=== PATIENT | male | born 1960 | race Caucasian/White ===

== ENCOUNTER → 2024-01-17 20:00 | Emergency (ER) | payer OTHER, SELFPAY ==
[2024-01-17 20:12] VITALS: BP 198/120
[2024-01-17 20:38] LABS: % Basophils 0.9 % (0-2); % Eosinophils 3.6 % (0-6); % Immature Granulocytes 0.1 % (0-0.5); % Lymphocytes 32.9 % (20.5-51.1); % Monocytes 10.4 % (1.7-9.3); % Neutrophils 52.1 % (42.2-75.2); Absolute Basophils 0.1 10^3/uL (0-0.2); Absolute Eosinophils 0.2 10^3/uL (0-0.7); Absolute Lymphocytes 2.2 10^3/uL (1.2-3.4); Absolute Monocytes 0.7 10^3/uL (0.1-0.6); Absolute Neutrophils 3.5 10^3/uL (1.4-6.5); Hematocrit 41.7 % (39.0-52.0); Hemoglobin 14.4 g/dL (13.0-18.0); Mean Corp Hgb Conc. 34.5 g/dL (33.0-37.0); Mean Corpuscular Hgb 31.5 pg (27.0-31.0); Mean Corpuscular Volume 91.2 fL (80.0-94.0); Mean Platelet Volume 8.5 fL (7.4-10.4); Nucleated Red Blood Cells % 0 % (-); Platelet Count 234 10^3/uL (130-400); Red Blood Cell Count 4.57 10^6/uL (4.70-6.10); Red Cell Dist. Width 11.9 % (11.5-14.5); White Blood Cell Count 6.7 10^3/uL (4.8-10.8)
[2024-01-17 20:53] LABS: ALT (SGPT) 43 U/L (0-50); AST (SGOT) 39 U/L (17-59); Albumin 4.7 g/dl (3.5-5.0); Alkaline Phosphatase 56 U/L (38-126); Blood Urea Nitrogen 11 mg/dl (9-20); Carbon Dioxide 26 mmol/L (22-30); Chloride 99 mmol/L (98-107); Glucose 125 mg/dl (70-99); Lipase 142 U/L (23-300); Potassium 4.1 mmol/L (3.5-5.1); Sodium 138 mmol/L (135-145); Total Bilirubin 0.5 mg/dl (0.2-1.3); Total Protein 7.4 g/dl (6.3-8.2); eGFR > 60.00
[2024-01-17 21:43] VITALS: BMI 32.9
[2024-01-17] MEDS: NSS 1000 IV (22:02)
[2024-01-17] MEDS: TORADOL 30 MG IV (22:03)
[2024-01-17 22:44] VITALS: BP 140/89
[2024-01-17 23:00] VITALS: BP 163/89
[2024-01-17 23:10] LABS: Urine Albumin Trace (Neg - Trace); Urine Bilirubin Negative (Negative); Urine Character Clear (Clear); Urine Color Yellow; Urine Glucose Negative (Negative); Urine Ketone Trace (Negative); Urine Leukocyte Trace (Negative); Urine Nitrite Negative (Negative); Urine Occult Blood 4+ (Negative); Urine Urobilinogen Negative (Neg - 1+)
[2024-01-17 23:17] LABS: Urine Bacteria Few (Negative); Urine Red Blood Cell 70-80 /HPF (0-2); Urine White Cell 0-2 /HPF (0-5)
[2024-01-18] VITALS: BP 153/91
--- NOTE | 2024-01-18 00:16 | ED.GENMED ---
History of Present Illness
General
Chief Complaint: Abdominal Pain
Source: patient and spouse
Exam Limitations: none
Time Seen by Provider: 01/17/24 21:48
Nursing documentation reviewed up to this point in time: agreed with
History of Present Illness
History of Present Illness:
63-year-old male presenting to the [facility] today with concerns of left lower abdominal pain over the past 2 days initially and but worsening today went to urgent care where he had hematuria sent him to the ER for further assessment. Denies
any fevers or vomiting. No history of kidney stones denies chest pain shortness of breath.
Review of Systems
Review of Systems
Allergies reviewed?: Yes
All Other Systems: ROS reviewed and negative except as documented in HPI and ROS
Phy Exam
Physical Exam
Physical Exam:
GENERAL: Alert , in no apparent distress
EYE: pupils equal and reactive
NECK: Supple, no significant adenopathy.
ENT: o/p clr, mmm.
CARDIAC: Regular rate and rhythm .
LUNGS: Clear breath sounds bilaterally, no acute respiratory distress, no wheezes/rales/rhonchi
ABDOMEN: No significant reproducible tenderness to the left lower quad or the left flank. No CVA tenderness, otherwise abdomen soft, without focal tenderness, no r/g, no cvat
NEUROLOGICAL: Alert and oriented, no focal neuro deficits
SKIN: Warm and dry, skin intact.
MUSCULOSKELETAL: No edema, well perfused.
PSYCH: Normal and appropriate interaction.
Course
Orders/Labs/Results
Orders:
Orders
01/17/24 20:22
Complete Blood Count/With Diff Urgent
Comprehensive Metabolic Panel Urgent
Lipase Urgent
01/17/24 21:52
CT Abd/Pel (IV only)-DH only Urgent
Comment:
Reason For Exam: llq pain
0.9% Sodium Chloride 1000 ml [Nss] 1,000 ml IV BOLUS
Ketorolac [Toradol] 30 mg IV NOW STA
01/17/24 23:04
Urinalysis Reflex To Culture Urgent
Date Specimen was Collected: 01/17/24
Time Specimen was Collected: 22:59
Urine Microscopic Reflex Cult Urgent
01/18/24 00:16
Tamsulosin [Flomax] 0.4 mg PO NOW STA
Abnormal Lab Results
01/17/24 01/17/24
20:22 23:04
RBC 4.57 L 10^6/uL
(4.70-6.10)
MCH 31.5 H pg
(27.0-31.0)
Absolute Monos (auto) 0.7 H 10^3/uL
(0.1-0.6)
Monocytes % 10.4 H %
(1.7-9.3)
Glucose 125 H mg/dl
(70-99)
Urine Ketones Trace A
(Negative)
Ur Occult Blood Reflex 4+ A
(Negative)
Leukocyte Esterase Rfl Trace A
(Negative)
Urine RBC 70-80 A /HPF
(0-2)
Urine Bacteria (Reflex) Few A
(Negative)
01/17/24 20:22
01/17/24 20:22
Vital Signs
Initial and Last Documented VS:
Initial Vital Signs
Temp Pulse Resp BP Pulse Ox
97.8 F 94 19 198/120 96
01/17/24 20:12 01/17/24 20:12 01/17/24 20:12 01/17/24 20:12 01/17/24 20:12
Last Documented Vital Signs
Temp Pulse Resp BP Pulse Ox
97.8 F 86 16 153/91 96
01/17/24 20:12 01/17/24 23:04 01/17/24 23:04 01/18/24 00:00 01/18/24 00:30
MDM/Problems Addressed
MDM/Problems Addressed:
63-year-old male presenting to the emergency department today with concerns of left lower abdominal pain described as sharp mitten initially but worsening throughout the day today went to urgent care had blood in his urine was sent to the ER for
further assessment. On arrival blood pressure elevated but improving after receiving Toradol. Was fully resolved after receiving Toradol. Otherwise labs were obtained with no white count normal renal function urinalysis showing red blood cells
but no significant white blood cells no CT scan showing 4 mm calculus at the left UVJ with associated mild left hydro ureteronephrosis. Additionally the patient did have an incidental finding of 1.2 cm hypoattenuating right renal lesion. He was
notified of this and will follow-up as an outpatient for renal ultrasound.
*Critical Care Note
Total Time (30-74mins, 75-104mins- exclusive of procedures): Not Applicable
ED Attending Note
-
Portions of this chart may have been created with voice recognition software.� Occasional wrong word or��sound alike� substitutions may have occurred due to the inherent limitations of voice recognition software.
Discharge Plan
Departure
Patient Disposition: Home (Routine Discharge)
Date of Disposition: 01/18/24
Time of Disposition: 00:16
Patient with high blood pressure during this ER visit?: No
Condition: Good
Covid-19: Not Applicable
Discharge Problem:
Kidney stone on left side
Instructions: Kidney Stones (DC)
Prescriptions:
New
ondansetron 4 mg tablet,disintegrating
4 mg PO Q8H PRN (Reason: nausea and vomiting) Qty: 7 0RF
ketorolac 10 mg tablet
10 mg PO Q8H PRN (Reason: Pain) 3 Days Qty: 14 0RF
tamsulosin [Flomax] 0.4 mg capsule
0.4 mg PO HS Qty: 7 0RF
Referrals:
Casey Reyez MD [Active] - Follow up in 5-7 days
Andrew Sarkar DO [Family Provider] -
Activity Restrictions/Additional Instructions:
You came to the emergency department today with concerns of left-sided discomfort. This is from a kidney stone. Please take the Flomax and the prescribed medications until follow-up with urology. Return to the emergency department for any
worsening, new or concerning symptoms
Interventions
Interventions:
*Risk Screen - Suicide Last Done: 01/17/24 21:43
*General Assessment Last Done: 01/17/24 20:11
*Neglect/Abuse Screening Last Done: 01/17/24 21:43
ED- Fall Risk Assessment Last Done: 01/17/24 21:43
*ED COVID-19 Vaccine History Last Done: 01/17/24 20:11
[facility]-U[facility]-Qffadqpkuq Assessment Last Done: 01/17/24 23:00
Discharge Date and Time
Print Language: SPANISH
[2024-01-18] MEDS: FLOMAX 0.400000000000000022 MG PO (00:38)
== END | disposition home or self-care (01) ==
LOC: EMR 20:00
PROVIDERS: Emergency Medicine; Physician Assistant; EMERGENCY PHYSICIAN Student in an Organized Health Care Education/Training Program; FAMILY PHYSICIAN Family Medicine
DX: N13.2 Hydronephrosis with renal and ureteral calculous obstruction (principal)
CPT/HCPCS: 99285; 96374; 96361; 74177; 80053; 81003; 81015; 83690; 85025; Q9967

== ENCOUNTER 2025-02-01 06:21 | Day surgery (SDC) | payer OTHER, SELFPAY ==
[2025-02-01 09:44] LABS: Glucose - Point of Care 138 mg/dl (70-99)
== END 2025-02-01 11:49 | disposition home or self-care (01) ==
LOC: GI 06:21
PROVIDERS: ATTENDING PHYSICIAN Internal Medicine Gastroenterology
DX: Z12.11 Encounter for screening for malignant neoplasm of colon (principal); K64.8 Other hemorrhoids; K63.89 Other specified diseases of intestine; D12.2 Benign neoplasm of ascending colon; K62.1 Rectal polyp; D12.1 Benign neoplasm of appendix
CPT/HCPCS: 45385; 45380; 82962; 88305

== ENCOUNTER 2025-03-26 12:36 | Emergency (ER) | payer OTHER, SELFPAY ==
[2025-03-26 12:39] VITALS: BP 138/100
[2025-03-26 13:47] VITALS: BMI 31.8
--- NOTE | 2025-03-26 13:51 | ED.GENMED ---
Addendum entered and electronically signed by Rosalba Frost DO 03/26/25 16:25:
Patient was notified by their pharmacy that cefpodoxime was not available. Prescription is changed to cefdinir 300 p.o. twice daily for 1 week. I spoke with the pharmacist at his preferred pharmacy who confirmed that they have this in stock and
would be able to fill this prescription for the patient.
Original Note:
History of Present Illness
General
Chief Complaint: Flank Pain
Time Seen by Provider: 03/26/25 13:40
Nursing documentation reviewed up to this point in time: agreed with
History of Present Illness
History of Present Illness:
64-year-old male presents to the ER for further evaluation of left-sided flank pain which started approximately 1 week ago. He states that the pain was mild last week and seem to resolve spontaneously. He did however develop dysuria and reached
out to his primary care physician. He was initiated on Bactrim which he has been taking but has had persistent left-sided flank pain. He denies radiation of pain to his groin or testicle. He denies any associated nausea or vomiting. He denies
fevers. He reports persistent dysuria, no hematuria. He had a prior history of kidney stone in the past which was symptomatic for approximately 1 week and then resolved spontaneously, he did not require any intervention for treatment of same. He
has been eating and drinking without difficulty. He denies any change in urine output. No vomiting. He took ibuprofen prior to arrival and has been using Tylenol also with some improvement in his pain.
Review of Systems
Review of Systems
Allergies reviewed?: Yes
Phy Exam
Physical Exam
Physical Exam:
Patient is awake, alert, appears in no acute distress, conjunctiva pink, mucous membranes moist, heart regular rate and rhythm without murmurs or ectopy, lungs are clear to auscultation without wheezes rales or rhonchi, abdomen is soft and nontender
on palpation, no CVA tenderness on exam, extremities without edema, 2+ DP pulses present bilateral feet, GCS is 15
Course
Orders/Labs/Results
Orders:
Orders
03/26/25 13:49
CR Abdomen - 1 View Urgent
Comment: Had CT 03/05 showing 4 mm calculus right ureter
Reason For Exam: L flank pain
Renal Only US [US Renal Only W/O Bladder] Urgent
Comment:
Reason For Exam: L flank pain
03/26/25 13:59
Basic Metabolic Panel Urgent
Complete Blood Count/With Diff Urgent
03/26/25 15:00
0.9% Sodium Chloride 1000 ml [Nss] 1,000 ml IV BOLUS
03/26/25 15:27
Urinalysis Urgent
Date Specimen was Collected: 03/26/25
Time Specimen was Collected: 14:45
Urine Culture Urgent
[facility] Source: Urine
Specimen Description:
Obtained by: [facility]
Date Specimen was Collected: 03/26/25
Time Specimen was Collected: 14:45
03/26/25 15:50
CefTRIAXone [Rocephin] 1,000 mg IV NOW STA
Abnormal Lab Results
03/26/25
13:59
RBC 4.57 L 10^6/uL
(4.70-6.10)
MCH 31.1 H pg
(27.0-31.0)
Absolute Monos (auto) 0.7 H 10^3/uL
(0.1-0.6)
Monocytes % 10.8 H %
(1.7-9.3)
BUN 22 H mg/dl
(9-20)
Creatinine 1.7 H mg/dL
(0.7-1.3)
Glucose 114 H mg/dl
(70-99)
Calcium 10.8 H mg/dl
(8.4-10.2)
03/26/25 13:59
03/26/25 13:59
Very reassuring CBC with normal white blood count. Mild elevation in creatinine at 1.7 compared to prior
Vital Signs
Initial and Last Documented VS:
Initial Vital Signs
Temp Pulse Resp BP Pulse Ox
98.4 F 105 16 138/100 98
03/26/25 12:39 03/26/25 12:39 03/26/25 12:39 03/26/25 12:39 03/26/25 12:39
Last Documented Vital Signs
Temp Pulse Resp BP Pulse Ox
98.4 F 69 16 135/84 97
03/26/25 12:39 03/26/25 15:29 03/26/25 15:29 03/26/25 15:29 03/26/25 15:29
MDM/Problems Addressed
Differential Diagnosis Includes:
Differential diagnosis to consider but not limited to pyelonephritis, renal colic, bladder outlet obstruction along with other etiologies considered
Chronic conditions affecting care:
Diabetes, hypertension, hyperlipidemia, kidney stones
*Radiology
Radiology exam reviewed: preliminary read by ED provider (I independently viewed and interpreted 1 view of the abdomen showing nonspecific bowel gas pattern, no obstruction, no discrete renal calculus noted) and radiology read reviewed (Renal
ultrasound resultLFINDINGS: Real-time/grace scale ultrasound of the kidneys was obtained. The kidneys are normal in size, contour and echogenicity. The right kidney measures 9.8 x 5.4 x 6.3 cm. The left kidney measures 11.3 x 4.9 x 6.3 cm. There is
no hydronephrosis. There is a small hypoechoic)
*Pulse Oximetry
SaO2: 98
Oxygen Mode of Delivery: Room air
Patient hypoxic: no
*Critical Care Note
Total Time (30-74mins, 75-104mins- exclusive of procedures): Not Applicable
Update Note
Update Note:
Patient took ibuprofen approximately 90 minutes ago and states that he has had some improvement in his pain. I reviewed labs that he brought with him from outpatient [facility] dated 03/05/2025-creatinine 1.17, mild elevation of calcium at 10.5.
Patient had a CT on 01/17/2024 that showed a left ureteral stone. Patient had a CT 03/05/2025 of which he brings the report showing 4 mm calculus in the distal right ureter, no hydroureter. No comment on any left-sided pathology. Kidneys are
described to enhance symmetrically. No hydronephrosis bilaterally. He also has a small fat-containing umbilical hernia.
1545: I reviewed all test results with patient and not present at bedside. White blood count is very reassuring. I discussed with them elevation in creatinine and am concerned with ongoing use of Bactrim. Would presume the patient has
pyelonephritis given absence of hydronephrosis. Urinalysis will be confounding, would await urine culture for any additional change in antibiotics. Will give dose of Rocephin along with prescription third-generation cephalosporin for treatment of
pyelonephritis. I discussed with patient and present bedside need to increase oral fluids, avoid use of NSAIDs, and follow-up with primary care physician this week for reevaluation and further care. Patient had previously seen urology and
expressed understanding of potential need to follow-up with them for reevaluation and further care. He feels comfortable with plan for discharge home and had no questions prior to the department
ED Attending Note
-
Portions of this chart may have been created with voice recognition software.� Occasional wrong word or��sound alike� substitutions may have occurred due to the inherent limitations of voice recognition software.
Discharge Plan
Departure
Patient Disposition: Home (Routine Discharge)
Date of Disposition: 03/26/25
Time of Disposition: 15:51
Patient with high blood pressure during this ER visit?: Yes
Discharge Problem:
Acute pyelonephritis, Acute kidney injury
Instructions: Flank Pain (DC), Urinary tract infection in adults - ED (DC), BLOOD PRESSURE
Prescriptions:
New
cefpodoxime 200 mg tablet
200 mg PO Q12H Qty: 14 0RF
No Action
metformin 500 mg tablet
1,000 mg PO BID
sulfamethoxazole-trimethoprim 800-160 mg tablet
1 tab PO BID
Rx Instructions:
started 03/22/25 for 7 days
sildenafil 100 mg tablet
100 mg PO DAILYPRN PRN (Reason: ED)
losartan-hydrochlorothiazide 100-25 mg tablet
1 tab PO DAILY
acetaminophen 500 mg Tablet
1,000 mg PO DAILYPRN PRN (Reason: mild pain)
Referrals:
Andrew Sarkar, [Family Provider, Family Practice]
Activity Restrictions/Additional Instructions:
Encourage fluids. Please avoid using ibuprofen for discomfort until you are seen in follow-up with your primary care physician. Please also discontinue using Bactrim. Complete course of cefpodoxime as prescribed today. Please follow-up with your
doctor this week to discuss ultrasound results, mild elevation in kidney function noted today, and possible need to follow-up with urology. Return to the ER for any concern
Interventions
Interventions:
*Risk Screen - Suicide Last Done: 03/26/25 12:39
*General Assessment Last Done: 03/26/25 13:48
*Neglect/Abuse Screening Last Done: 03/26/25 12:39
*ED- Fall Risk Assessment Last Done: 03/26/25 13:48
*ED COVID-19 Vaccine History Last Done: 03/26/25 13:48
Discharge Date and Time
Print Language: IRISH
[2025-03-26 13:57] VITALS: BP 119/84
[2025-03-26 14:18] LABS: Hematocrit 40.2 % (39.0-52.0); Hemoglobin 14.2 g/dL (13.0-18.0); Mean Corp Hgb Conc. 35.3 g/dL (33.0-37.0); Mean Corpuscular Volume 88.0 fL (80.0-94.0); Nucleated Red Blood Cells % 0 % (-); Platelet Count 253 10^3/uL (130-400); Red Cell Dist. Width 12.1 % (11.5-14.5)
[2025-03-26 14:28] LABS: Blood Urea Nitrogen 22 mg/dl (9-20); Calcium 10.8 mg/dl (8.4-10.2); Carbon Dioxide 26 mmol/L (22-30); Chloride 101 mmol/L (98-107); Estimated Creatinine Clearance 43 ml/min; Glucose 114 mg/dl (70-99); Potassium 4.5 mmol/L (3.5-5.1); Sodium 135 mmol/L (135-145); eGFR 44.46
[2025-03-26] MEDS: NSS 1000 IV (15:24)
[2025-03-26 15:29] VITALS: BP 135/84
[2025-03-26 16:25] LABS: Urine Character Slightly Cloudy (Clear)
[2025-03-26] MEDS: ROCEPHIN 1000 MG IV (16:28)
[2025-03-26 16:35] VITALS: BP 133/86
[2025-03-26 16:54] LABS: Urine Red Blood Cell 80-90 /HPF (0-2); Urine Squamous Cell 0-2 /LPF (Few); Urine White Cell 0-2 /HPF (0-5)
== END 2025-03-26 16:35 | disposition home or self-care (01) ==
LOC: EMR 12:36
PROVIDERS: EMERGENCY PHYSICIAN Emergency Medicine; FAMILY PHYSICIAN Family Medicine
DX: N10 Acute pyelonephritis (principal); N17.9 Acute kidney failure, unspecified; Z87.442 Personal history of urinary calculi
CPT/HCPCS: 96374; 96361; 99284; 74018; 76775; 80048; 81003; 81015; 85025; 87086